=== PATIENT | male | born 1980 | race Caucasian/White ===

== ENCOUNTER 2020-05-29 10:13 | Emergency (ER) | payer OTHER ==
[~2020-05-29] VITALS: Ht 188 cm; Wt 95.3 kg
--- NOTE | 2020-05-29 11:00 | Diagnostic Imaging Report ---
EXAM: CT Abdomen and Pelvis WITHOUT intravenous contrast INDICATION: Periumbilical abdominal pain COMPARISON: None. TECHNIQUE: Abdomen and pelvis were scanned utilizing a multidetector helical scanner from the lung base to the pubic symphysis without administration of IV contrast. Coronal and sagittal reformations were obtained. IV CONTRAST: None ORAL CONTRAST: Water COMPLICATIONS: None RADIATION DOSE: Total DLP: 1204 mGy*cm Dose modulation, iterative reconstruction, and/or weight based adjustment of the mA/kV was utilized to reduce the radiation dose to as low as reasonably achievable. FINDINGS: LOWER THORAX: Normal. HEPATOBILIARY: No focal liver lesions. Decompressed gallbladder. SPLEEN: No splenomegaly. PANCREAS: No focal masses or ductal dilatation. ADRENALS: No adrenal nodules. KIDNEYS/URETERS: No hydronephrosis, stones, or solid mass lesions. PELVIC ORGANS/BLADDER: Unremarkable. PERITONEUM / RETROPERITONEUM: No free air or fluid. LYMPH NODES: No lymphadenopathy. VESSELS: Unremarkable. GI TRACT: No abnormal bowel thickening. No bowel obstruction. Status post appendectomy. Small amount of oral contrast material in the stomach and duodenum. BONES AND SOFT TISSUES: No acute osseous injury. No suspicious lytic or blastic lesions. IMPRESSION: No acute findings in the abdomen or pelvis. Signed by: Tucker Montaño MD on 05/29/2020 10:56 AM
[2020-05-29] MEDS ORDERED: KETOROLAC TROMETHAMINE 30 MG/ML VIAL IV STA (11:19)
[2020-05-29] MEDS ORDERED: LORAZEPAM INJ 2 MG/ML VIAL IV ONE (11:30)
[2020-05-29] MEDS ORDERED: KETOROLAC TROMETHAMINE 30 MG/ML VIAL ONE (11:43)
[2020-05-29] MEDS ORDERED: LORAZEPAM INJ 2 MG/ML VIAL ONE (11:44)
--- NOTE | 2020-05-29 12:18 | Emergency Department Note ---
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 SAYS WENT TO URGENT CARE WEDNESDAY, WAS TOLD TO GO TO ER IF PAIN DIDN'T RESOLVE . Historian: Patient Arrival Mode: Car Onset (how long ago): day(s) (1) Location: periumbilical Quality: sharp Radiation: Denies non-radiation, Denies back, Denies neck, Denies extremity, Denies abdomen, Denies periumbilical, Denies flank, Denies proximal, Denies distal, Denies other Severity: moderate Onset quality: gradual Duration (how long): day(s) (2) Timing of current episode: constant Progression: waxing and waning Chronicity: new Context: Denies recent illness, Denies recent surgery, Denies recent immobilization, Denies recent travel, Denies trauma/injury, Denies new medications, Denies hx of DVT/PE, Denies non-compliance w/ medications, Denies other Relieving factors: none Exacerbating factors: none Associated symptoms: Reports denies other symptoms Treatments prior to arrival: none Past Medical/Family History Physician Review I have reviewed the patient's past medical and family history. Any updates have been documented here. Past Medical History Recent Fever: No Clinical Suspicion of Infectio: No New/Unexplained Change in Ment: No Other Medical History: OPOID ADDICTION Past Surgical History: Appendectomy Social History Smoking Cessation: Never Smoker Any Illegal Drug Use: Yes (ON SUBOXONE) Physically hurt or threatened: No Other Any Pre-Existing Lines (PICC,: No Review of Systems Review of Systems Constitutional: Reports no symptoms EENTM: Reports no symptoms Cardiovascular: Reports no symptoms Respiratory: Reports no symptoms Gastrointestinal: Reports as per HPI Genitourinary: Reports no symptoms Musculoskeletal: Reports no symptoms Integumentary: Reports no symptoms Neurological: Reports no symptoms Psychological: Reports no symptoms Endocrine: Reports no symptoms Hematological/Lymphatic: Reports no symptoms Physical Exam Related Data Triage Vital Signs Vital Signs Date Time Temp Pulse Resp B/P (MAP) Pulse Ox O2 Delivery O2 Flow Rate FiO2 05/29/20 10:30 96.6 83 16 152/88 97 Room Air Vital signs reviewed: Yes Physical Exam CONSTITUTIONAL Constitutional: Present well-developed, Present well-nourished HENT HENT: Present normocephalic, Present atraumatic, Present oropharynx clear/moist, Present nose normal HENT L/R: Present left ext ear normal, Present right ext ear normal EYES Eyes: Reports PERRL, Reports conjunctivae normal NECK Neck: Present ROM normal PULMONARY Pulmonary: Present effort normal, Present breath sounds normal CARDIOVASCULAR Cardiovascular: Present regular rhythm, Present heart sounds normal, Present capillary refill normal, Present normal rate GASTROINTESTINAL Abdominal: Present soft, Present bowel sounds normal, Present tender (periumbilical) GENITOURINARY Genitourinary: Present exam deferred SKIN Skin: Present warm, Present dry MUSCULOSKELETAL Musculoskeletal: Present ROM normal NEUROLOGICAL Neurological: Present alert, Present oriented x 3, Present no gross motor or sensory deficits PSYCHOLOGICAL Psychological: Present mood/affect normal, Present judgement normal Results Imaging Imaging results reviewed: Yes Assessment & Plan Medical Decision Making MDM hernia,,,cellulitis Reassessment Reassessment time: 12:17 Reassessment better Assessment & Plan Final Impression: (1) Cellulitis of periumbilical region (2) Anxiety Depart Disposition: HOME, SELF-CARE Last Vital Signs Date Time Temp Pulse Resp B/P (MAP) Pulse Ox O2 Delivery O2 Flow Rate FiO2 05/29/20 11:25 84 20 140/77 99 05/29/20 10:30 96.6 Room Air Medications in the ED Ketorolac Tromethamine 15 mg ONCE STAT IV Last administered on 05/29/20at 11:42; Admin Dose 15 MG; Start 05/29/20 at 11:19; Stop 05/29/20 at 11:20; Status UNV Lorazepam 1 mg ONCE ONCE IV Last administered on 05/29/20at 11:43; Admin Dose 1 MG; Start 05/29/20 at 11:30; Stop 05/29/20 at 11:31; Status UNV NELDA BOYLE MD May 29, 2020 12:18
[2020-05-29] MEDS ORDERED: AUGMENTIN 500-1 EACH PO (12:21)
== END 2020-05-29 12:34 | disposition home or self-care (01) ==
LOC: FSED 10:13
DX: L03.311 Cellulitis of abdominal wall (principal); F41.9 Anxiety disorder, unspecified
CPT/HCPCS: 74176; 80048; 85025; 99284; J1885; J2060

== ENCOUNTER → 2023-12-13 | Outpatient (REF) | payer BC ==
[~2023-12-13] MED LIST: AUGMENTIN 500-1 EACH PO
== END ==
LOC: CT 07:51
PROVIDERS: ATTEND Urology
DX: K40.90 Unilateral inguinal hernia, without obstruction or gangrene, not specified as recurrent (principal); N45.3 Epididymo-orchitis
CPT/HCPCS: 74176; 76870; 93976